=== PATIENT | female | born 1985 | race American Indian/Alaskan Native ===

== ENCOUNTER 2021-03-16 10:15 | Emergency (ER) | payer OTHER ==
[2021-03-16] MEDS ORDERED: IBUPROFEN 800 MG TAB PO ONE (11:08)
[2021-03-16] MEDS ORDERED: HYDROcodone/ACETAMINOPHEN 5-325 MG TAB PO ONE (11:08)
--- NOTE | 2021-03-16 11:08 | Emergency Department Report ---
ED Lower Extremity HPI - General Chief Complaint: Extremity Injury, Lower Stated Complaint: LFT FOOT PAIN Source: patient Mode of arrival: Ambulatory Limitations: Physical Limitation - History of Present Illness Initial Comments: 35 YO COMES TO ER SP FALLING FROM CURB YESTERDAY ROLLING HER ANKLE. SOFT TISSUE SWELLING LATERAL MAL. AREA OF LEFT ANKLE. FOOT AND KNEE WITHOUT INJURY. DENIES OTHER INJURY. FALL WITNESSED. MECHANICAL. NO DOWN TIME. NEUROVASC INTACT PAIN WHEN SHE ATTEMPTS TO WALK MD Complaint: ankle injury -: Sudden Type of Injury: inversion Place: home Severity: mild Improves With: nothing Worsens With: movement Context: fall Associated Symptoms: snap/pop sensation - Related Data Previous Rx's Medication Instructions Recorded Last Taken Type traMADoL [Ultram] 50 mg PO Q6HR PRN #12 tablet 03/16/21 Unknown Rx Allergies Allergy/AdvReac Type Severity Reaction Status Date / Time No Known Allergies Allergy Verified 03/16/21 11:07 ED Review of Systems ROS: Stated complaint: LFT FOOT PAIN Other details as noted in HPI Comment: All other systems reviewed and negative ED Past Medical Hx - Past Medical History Previous Medical History?: No - Surgical History Past Surgical History?: No - Family History Family history: no significant - Social History Smoking Status: Never Smoker Substance Use Type: None - Medications Home Medications: Home Medications Medication Instructions Recorded Confirmed Last Taken Type traMADoL [Ultram] 50 mg PO Q6HR PRN #12 tablet 03/16/21 Unknown Rx ED Physical Exam - General Limitations: Physical Limitation General appearance: alert, in no apparent distress - Head Head exam: Present: atraumatic, normocephalic - Eye Eye exam: Present: normal appearance - ENT ENT exam: Present: mucous membranes moist - Neck Neck exam: Present: normal inspection - Respiratory Respiratory exam: Present: normal lung sounds bilaterally. Absent: respiratory distress - Cardiovascular Cardiovascular Exam: Present: regular rate, normal rhythm. Absent: systolic murmur, diastolic murmur, rubs, gallop - GI/Abdominal GI/Abdominal exam: Present: soft, normal bowel sounds - Extremities Exam Extremities exam: Present: normal inspection - Expanded Lower Extremity Exam Left Lower Leg exam: Present: normal inspection Ankle exam: Present: tenderness, swelling Foot/Toe exam: Present: normal inspection - Back Exam Back exam: Present: normal inspection - Neurological Exam Neurological exam: Present: alert, oriented X3 - Psychiatric Psychiatric exam: Present: normal affect, normal mood - Skin Skin exam: Present: warm, dry, intact, normal color. Absent: rash ED Course Vital Signs 03/16/21 03/16/21 11:06 13:24 Temperature 98.6 F Pulse Rate 98 H 88 Respiratory 16 16 Rate Blood Pressure 124/82 119/75 [Right] O2 Sat by Pulse 100 98 Oximetry ED Lower Extremity MDM - Radiology Data Radiology results: report reviewed, image reviewed FX - Medical Decision Making FX NOTED ON XRAY MEDICATED FOR PAIN SHORT LEG SPLINT PLACED/CRUTCHES REMAINS NEUOROVASC INTACT TOES PINK AND WARM EDUCATED ON DC PLAN OF CARE INCLUDING DIET, ACTIVITY, NON WEIGHT BEARING, FOLLOW UP AND PAIN MANAGEMENT. SHE VERBALIZES UNDERSTANDING OF PLAN OF CARE. Vital Signs 03/16/21 03/16/21 11:06 13:24 Temperature 98.6 F Pulse Rate 98 H 88 Respiratory 16 16 Rate Blood Pressure 124/82 119/75 [Right] O2 Sat by Pulse 100 98 Oximetry - Differential Diagnosis ro fx Critical care attestation.: If time is entered above; I have spent that time in minutes in the direct care of this critically ill patient, excluding procedure time. ED Disposition Clinical Impression: Fibula fracture Disposition: 01 HOME / SELF CARE / HOMELESS Is pt being admited?: No Does the pt Need Aspirin: No Condition: Stable Instructions: Cast or Splint Care, Adult, [id number] Additional Instructions: rest ice elevate motrin and tylenol for mild pain ultram for severe pain split to stay on and use crutches until you see ortho MD referral below Prescriptions: traMADoL [Ultram] 50 mg PO Q6HR PRN #12 tablet PRN Reason: Pain Referrals: PERFECTO PETERSON MD [Staff Physician] - 3-5 Days Time of Disposition: 12:12
[2021-03-16 13:28] VITALS: BP 119/75
--- NOTE | 2021-03-17 09:28 | XRay Report ---
LEFT ANKLE 2 VIEWS INDICATION / CLINICAL INFORMATION: Left ankle pain after fall. COMPARISON: None available. FINDINGS: BONES and JOINT(S): There is an acute mildly displaced oblique fracture through the lateral malleolus . A questionable nondisplaced fracture through the posterior malleolus is noted. The medial malleolus appears intact. There is widening of the medial clear space, measuring 8.5 mm. SOFT TISSUES: Moderate generalized edema is present. ADDITIONAL FINDINGS: None. IMPRESSION: 1. Acute left lateral malleolus fracture with evidence of disruption of the ankle joint. 2. Questionable nondisplaced posterior malleolus fracture. Signer Name: Leonardo Maurer MD Signed: 03/16/2021 12:02 PM Workstation Name: [id number]
== END 2021-03-16 13:32 | disposition home or self-care (01) ==
LOC: ED 10:15
DX: S82.402A Unspecified fracture of shaft of left fibula, initial encounter for closed fracture (principal); Z79.899 Other long term (current) drug therapy; W10.1XXA Fall (on)(from) sidewalk curb, initial encounter; Y93.89 Activity, other specified; Y92.89 Other specified places as the place of occurrence of the external cause; Y99.8 Other external cause status
CPT/HCPCS: 99283